=== PATIENT | female | born 1960 | race Caucasian/White ===

== ENCOUNTER 2021-10-11 21:26 | Emergency (ER) | payer OTHER, MEDICAID, SELFPAY ==
[2021-10-11] VITALS (10 sets, daily range): BP systolic 124–164; BP diastolic 68–88; PULSE 73–108; RESP 17–26; TEMP 33.1–33.5; O2SAT 94–97
--- NOTE | 2021-10-11 21:28 | DI.CT.S_ITS ---
PROCEDURE: CT HEAD/BRAIN WO CON INDICATIONS: fall, obvious trauma TECHNIQUE: Noncontrast 4.5 mm thick angled axial sections acquired from the foramen magnum to the vertex, with coronal and sagittal reformats. For radiation dose reduction, the following was used: automated exposure control, adjustment of mA and/or kV according to patient size. COMPARISON: [facility], CT, CT FACIAL BONES WO CON, 10/11/2021, 22:19. [facility], CT, CT CERVICAL SPINE WO CON, 10/11/2021, 22:19. FINDINGS: Image quality: There is metallic streak artifact from patient's dental hardware. CSF spaces: There is an acute hyperdense right holohemispheric subdural hematoma measuring up to approximately 0.4 cm in thickness. This includes components extending along the falx and along the tentorium. There is a suspected small amount of intraventricular hemorrhage in the posterior horns of the right and left lateral ventricles. The basilar cisterns appear patent. Brain: There is leftward midline shift of approximately 0.5 cm. [place]-white matter interface appears preserved. No intraparenchymal hematoma. Skull and face: Calvarium and visualized facial bones appear intact. Sinuses: Visualized sinuses and mastoids are clear. IMPRESSION: 1. Acute right holohemispheric subdural hematoma with associated leftward midline shift as described. 2. Suspected small amount of interventricular hemorrhage in the lateral ventricles. Findings reported to Dr. Camarena on 10/11/2021 at 10:42 p.m.. Dictated by: Abhi Rebolledo M.D. on 10/11/2021 at 22:40 Approved by: Abhi Rebolledo M.D. on 10/11/2021 at 22:48
--- NOTE | 2021-10-11 21:28 | DI.CT.S_ITS ---
PROCEDURE: CT CERVICAL SPINE WO CON INDICATIONS: fall, found down TECHNIQUE: Noncontrast 3 mm thick sections acquired from the skull base to the T4 level. Sagittal and coronal reformats were then constructed. For radiation dose reduction, the following was used: automated exposure control, adjustment of mA and/or kV according to patient size. COMPARISON: [facility], CT, CT HEAD/BRAIN WO CON, 10/11/2021, 22:19. FINDINGS: Image quality: Excellent. Bones: No fractures or subluxation in the cervical spine. There are mild superior endplate compression deformities at T1 and T3 vertebral bodies of indeterminate acuity. There is associated mild loss of height of up to approximately 25% centrally at T1 and T3. No retropulsed fragments in the spinal canal. There is mild straightening of the cervical lordosis. Mild multilevel degenerative disc disease is present within the lower cervical spine. There are disc osteophyte complexes demonstrated at C5-C6 and C6-C7 with associated mild to moderate spinal canal narrowing. Mild multilevel facet arthropathy also present. Visualized superior ribs are intact. Soft tissues: Prevertebral soft tissues are normal in thickness. No paravertebral hematomas. No apical pneumothoraces. There is a right subdural hematoma within the visualized brain as seen on the concurrent CT of the head. IMPRESSION: 1. No fracture or subluxation in the cervical spine. 2. Mild superior endplate compression deformities of the T1 and T3 vertebral bodies of indeterminate acuity. No retropulsed fragments in the spinal canal. Findings discussed with Dr. Camarena on 10/11/2021 at 10:55 p.m.. Dictated by: Abhi Rebolledo M.D. on 10/11/2021 at 22:54 Approved by: Abhi Rebolledo M.D. on 10/11/2021 at 23:00
--- NOTE | 2021-10-11 21:28 | DI.CT.S_ITS ---
PROCEDURE: CT FACIAL BONES WO CON INDICATIONS: fall, obvious injuries TECHNIQUE: Noncontrast 2.5 mm thick axial images acquired from the mandible through the frontal sinuses, with coronal and sagittal reformatting. For radiation dose reduction, the following was used: automated exposure control, adjustment of mA and/or kV according to patient size. COMPARISON: [facility], CT, CT HEAD/BRAIN WO CON, 10/11/2021, 22:19. FINDINGS: Image quality: Excellent. Bones and teeth: Orbital mccord are intact. Sinus mccord show no fracture or deformity. Nasal bones and septum are intact. Visualized portions of the mandible demonstrate no fractures or subluxation. Zygomatic arches are intact. Pterygoid plates are intact. Visualized portions of the skull base and auditory canals are intact. Sinuses: Paranasal sinuses are aerated, without fluid levels, mucosal thickening, or mucoceles. Mastoid air cells are aerated. Soft tissues: There is mild right periorbital soft tissue swelling. The globes appear intact. No retro bulbar fluid collection within the orbits. The visualized brain demonstrates a right subdural hematoma with leftward midline shift as seen on the concurrent CT of the head. Vascular: Visualized vascular structures appear normal in the absence of contrast. Bony vascular foramina and canals are intact. IMPRESSION: 1. No facial bone fractures identified. 2. Partially visualized right subdural hematoma. Recommend correlation with concurrent CT of the head. Dictated by: Abhi Rebolledo M.D. on 10/11/2021 at 22:49 Approved by: Abhi Rebolledo M.D. on 10/11/2021 at 22:54
--- NOTE | 2021-10-11 21:40 | PC.NURSE ---
temperature probe castellano inserted with about 5 ml urine returned, temp at 91F sebas hugger applied to pt
[2021-10-11] MEDS: SODIUM CHLORIDE 0.9% 1,000 ML 150 ML IV ×2 (21:45→22:52)
[2021-10-11 21:49] LABS: Add Manual Diff / Slide Review NO; Basophils Absolute Auto 100 /uL (0-100); Basophils Percent Auto 0.8 % (0-2); Eosinophils Absolute Auto 0 /uL (0-450); Eosinophils Percent Auto 0.1 % (2-4); Hematocrit 30.6 % (36-46); Hemoglobin 10.3 g/dL (12.0-16.0); Lymphocytes Absolute Auto 1000 /uL (1100-4500); Mean Corpuscular HGB Conc 33.6 % (30-36); Mean Corpuscular Hemoglobin 28.9 PG (26-34); Mean Corpuscular Volume 85.9 fL (80-100); Monocytes Absolute Auto 600 /uL (0-900); Monocytes Percent Auto 6.4 % (3-14); Neutrophils Absolute Auto 7400 /uL (1500-7000); Neutrophils Percent Auto 81.7 % (50-75); Platelet Count 114 X10^3/uL (150-400); Red Blood Cell Count 3.57 X10^6/uL (4.0-5.2); Red Cell Distribution Width 22.2 % (11.6-14.8)
[2021-10-11 21:52] LABS: INR 0.9 (0.9-1.3)
[2021-10-11 21:55] LABS: Lactate (Lactic Acid) 1.2 mmol/L (0.7-2.1); PTT Partial Thromboplastin Tim 30 SECONDS (26.4-36.2)
[2021-10-11 21:56] LABS: Acetaminophen < 10 ug/mL (10-30); Alanine Aminotransferase 61 IU/L (<35); Albumin 4.1 g/dL (3.5-5.0); Albumin Globulin Ratio 1.2 (1.0-2.8); Alkaline Phosphatase 154 U/L (38-126); Aspartate Aminotransferase 123 IU/L (14-36); Blood Urea Nitrogen 95 mg/dL (7-17); Calcium 10.2 mg/dL (8.4-10.2); Carbon Dioxide 25 mmol/L (22-32); Chloride 97 mmol/L (98-107); Creatine Kinase 257 U/L (30-135); Estimated Glomerular Filt Rate 25 mL/min (>60); Ethanol (ETOH) < 10 mg/dL; Globulin 3.3 g/dL (1.7-4.1); Glucose 142 mg/dL (80-110); HEMOLYSIS < 15 (0-50); Potassium 3.3 mmol/L (3.4-5.1); Salicylate < 1.0 mg/dL (<20); Sodium 142 mmol/L (137-145); Total Protein 7.4 g/dL (6.3-8.2)
--- NOTE | 2021-10-11 22:03 | PC.NURSE ---
see triage note for assessment
[2021-10-11 22:07] LABS: Troponin I < 0.012 ng/mL (0.01-0.034)
[2021-10-11 22:08] LABS: Ammonia (NH3) < 9 umol/L (9-30)
[2021-10-11 22:11] LABS: CKMB % Relative Index 2.9 % (1.5-5.0); Creatine Kinase MB 7.54 ng/mL (<2.37)
[2021-10-11 22:21] LABS: Anisocytosis 3+; Ovalocytes 1+
--- NOTE | 2021-10-11 22:22 | ED_ITS ---
HPI - Altered Mental Status General Chief Complaint: Altered Mental Status Stated Complaint: Found down Time Seen by Provider: 10/11/21 21:34 Source: EMS Mode of arrival: EMS History of Present Illness HPI narrative: 61-year-old female with minimal known medical history presents by EMS for evaluation of altered mental status. Per EMS report is that she was found lying on the bathroom floor by her daughter with an unknown down time. She was found to be incontinent of stool and urine and has multiple bruises on her head, face, chest, abdomen. It is unclear if she has been on blood thinners. She states she thinks she bumped her head a few days ago but is unclear about recent events. She has a very poor historian. She is activated as of modified trauma given altered mental status and head injury Related Data Allergies Allergy/AdvReac Type Severity Reaction Status Date / Time Penicillins Allergy Verified 10/11/21 22:29 Review of Systems Review of Systems ROS Unobtainable: Unobtainable due to mental status/LOC Exam Narrative Exam Narrative: GENERAL: [61] year old patient appears stated age. GCS 14 (Confused) HEAD: scalp contusions, no obvious depressed skull fracture, ecchymosis surrou nding both eyes EYES: Pupils equal round and reactive. No hyphema, Extraocular motions intact. No scleral icterus. No injection or drainage. ENT: Dry mucous membranes Nose without bleeding, purulent drainage. Throat without erythema, tonsillar hypertrophy or exudate. Airway patent. NECK: Trachea midline. Midline tenderness, no step-offs or crepitance CARDIOVASCULAR: Ecchymosis on anterior chest and abdomen. Regular rate and rhythm without murmurs, gallops, or rubs. RESPIRATORY: Clear to auscultation. Breath sounds equal bilaterally. No wheezes, rales, or rhonchi. GASTROINTESTINAL: Abdomen soft, non-tender, nondistended. EXTREMITIES: No edema or joint tenderness. BACK: Nontender without deformity or crepitance. No flank tenderness. NEURO: Awake, confused regarding location and circumstances SKIN: Poor skin turgor No rash or erythema of visible areas Initial Vital Signs Initial Vital Signs: Vital Signs Pulse Rate 75 10/11/21 21:28 Blood Pressure 155/88 H 10/11/21 21:28 Pulse Oximetry 95 10/11/21 21:28 Course Orders Ordered: ED Orders 10/11/21 21:28 CT cervical spine wo con Stat CT facial bones wo con Stat CT head/brain wo con Stat Urine Culture Stat Urine Drug Screen, Rapid Stat EKG-12 Lead Stat 10/11/21 21:34 Acetaminophen Stat COVID19 -Nasal RAPID/Pre-Proc Stat Complete Blood Count AUTO DIFF Stat Comprehensive Metabolic Panel Stat Ethanol (ETOH) Stat Lactate (Lactic Acid) Stat Osmolality, Serum Stat Partial Thromboplastin Time Stat Prolactin Stat Prothrombin Time INR Stat Salicylate Stat Thyroid Stimulating Hormone Stat Troponin & CK Cardiac Panel Stat 10/11/21 21:50 Ammonia (NH3) Stat Sodium Chloride (Normal Saline 0.9%) 1,000 mls @ 150 mls/hr IV CONT LONNY Last Admin: 10/11/21 22:52 Dose: 150 mls/hr Reevaluation(s) Reevaluation #1: discussed with daughter ([phone]), brother is CEZAR Flores ([phone]) Consultations Consultation #1: Dr. Albarado ([facility] [place] Trauma) happy to accept Vital Signs Vital signs: Vital Signs - 8 hr 10/11/21 21:35 10/11/21 21:28 10/11/21 21:28 Temperature 92.2 F L Pulse Rate 73 75 Respiratory Rate 18 Blood Pressure 143/80 H 155/88 H Pulse Oximetry 97 95 Oxygen Delivery Method Room Air 10/11/21 21:30 10/11/21 21:31 10/11/21 21:31 Temperature Pulse Rate 76 Respiratory Rate 22 Blood Pressure 143/80 H Pulse Oximetry 96 96 Oxygen Delivery Method 10/11/21 22:00 10/11/21 22:00 10/11/21 22:28 Temperature 91.6 F L Pulse Rate 85 96 H Respiratory Rate 17 23 Blood Pressure 142/84 H Pulse Oximetry 97 94 Oxygen Delivery Method 10/11/21 22:28 10/11/21 22:30 10/11/21 22:30 Temperature 91.6 F L Pulse Rate 73 Respiratory Rate 22 Blood Pressure 140/88 164/74 H Pulse Oximetry 97 Oxygen Delivery Method MDM - Altered Mental Status Lab Data Result diagrams: 10/11/21 21:34 10/11/21 21:34 Labs: Lab Results 10/11/21 10/11/21 10/11/21 Range/Units 21:34 21:34 21:34 WBC 9.0 (4.5-11.0) X10^3/uL RBC 3.57 L (4.0-5.2) X10^6/uL Hgb 10.3 L (12.0-16.0) g/dL Hct 30.6 L (36-46) % MCV 85.9 (80-100) fL MCH 28.9 (26-34) PG MCHC 33.6 (30-36) % RDW 22.2 H (11.6-14.8) % Plt Count 114 L (150-400) X10^3/uL Neut % (Auto) 81.7 H (50-75) % Lymph % (Auto) 11.0 L (25-40) % [place] % (Auto) 6.4 (3-14) % Eos % (Auto) 0.1 L (2-4) % Baso % (Auto) 0.8 (0-2) % Neut # (Auto) 7400 H (2278-2386) /uL Lymph # (Auto) 1000 L (5831-1004) /uL [place] # (Auto) 600 (0-900) /uL Eos # (Auto) 0 (0-450) /uL Baso # (Auto) 100 (0-100) /uL RBC Morphology See below Anisocytosis 3+ H Ovalocytes 1+ H PT 10.0 L (10.1-12.7) SECONDS INR 0.9 (0.9-1.3) APTT 30 (26.4-36.2) SECONDS Sodium 142 (137-145) mmol/L Potassium 3.3 L (3.4-5.1) mmol/L Chloride 97 L (98-107) mmol/L Carbon Dioxide 25 (22-32) mmol/L BUN 95 H (7-17) mg/dL Creatinine 2.21 H (0.52-1.04) mg/dL Estimated GFR 25 L (>60) mL/min BUN/Creatinine Ratio 43.0 H (6-22) Glucose 142 H (80-110) mg/dL Lactate (0.7-2.1) mmol/L Calcium 10.2 (8.4-10.2) mg/dL Total Bilirubin 1.0 (0.2-1.3) mg/dL AST 123 H (14-36) IU/L ALT 61 H (<35) IU/L Alkaline Phosphatase 154 H (38-126) U/L Ammonia (9-30) umol/L Total Creatine Kinase 257 H (30-135) U/L CK-MB (CK-2) 7.54 H (<2.37) ng/mL CK-MB (CK-2) Rel Index 2.9 (1.5-5.0) % Troponin I < 0.012 (0.01-0.034) ng/mL Total Protein 7.4 (6.3-8.2) g/dL Albumin 4.1 (3.5-5.0) g/dL Globulin 3.3 (1.7-4.1) g/dL Albumin/Globulin Ratio 1.2 (1.0-2.8) Prolactin 33.0 H (3.0-18.6) ng/mL Salicylates < 1.0 (<20) mg/dL Acetaminophen < 10 (10-30) ug/mL Ethyl Alcohol < 10 ( - 10) mg/dL SARS-CoV-2 (PCR) (Negative) 10/11/21 10/11/21 10/11/21 Range/Units 21:34 21:50 22:35 WBC (4.5-11.0) X10^3/uL RBC (4.0-5.2) X10^6/uL Hgb (12.0-16.0) g/dL Hct (36-46) % MCV (80-100) fL MCH (26-34) PG MCHC (30-36) % RDW (11.6-14.8) % Plt Count (150-400) X10^3/uL Neut % (Auto) (50-75) % Lymph % (Auto) (25-40) % [place] % (Auto) (3-14) % Eos % (Auto) (2-4) % Baso % (Auto) (0-2) % Neut # (Auto) (2083-1260) /uL Lymph # (Auto) (1652-4220) /uL [place] # (Auto) (0-900) /uL Eos # (Auto) (0-450) /uL Baso # (Auto) (0-100) /uL RBC Morphology Anisocytosis Ovalocytes PT (10.1-12.7) SECONDS INR (0.9-1.3) APTT (26.4-36.2) SECONDS Sodium (137-145) mmol/L Potassium (3.4-5.1) mmol/L Chloride (98-107) mmol/L Carbon Dioxide (22-32) mmol/L BUN (7-17) mg/dL Creatinine (0.52-1.04) mg/dL Estimated GFR (>60) mL/min BUN/Creatinine Ratio (6-22) Glucose (80-110) mg/dL Lactate 1.2 (0.7-2.1) mmol/L Calcium (8.4-10.2) mg/dL Total Bilirubin (0.2-1.3) mg/dL AST (14-36) IU/L ALT (<35) IU/L Alkaline Phosphatase (38-126) U/L Ammonia < 9 L (9-30) umol/L Total Creatine Kinase (30-135) U/L CK-MB (CK-2) (<2.37) ng/mL CK-MB (CK-2) Rel Index (1.5-5.0) % Troponin I (0.01-0.034) ng/mL Total Protein (6.3-8.2) g/dL Albumin (3.5-5.0) g/dL Globulin (1.7-4.1) g/dL Albumin/Globulin Ratio (1.0-2.8) Prolactin (3.0-18.6) ng/mL Salicylates (<20) mg/dL Acetaminophen (10-30) ug/mL Ethyl Alcohol ( - 10) mg/dL SARS-CoV-2 (PCR) Negative (Negative) Point of Care Testing Glucose POC [address] scan - head: Radiologist's Impression: [address] [address] [address] Scan Report Signed Patient: Bisi Reyes MR#: [id number] : 1960 Acct:[id number] Age/Sex: 61 / F Date of Service: 10/11/21 Loc: ED Accession Number: [id number] ?? Procedure: CT head/brain wo con Ordering Provider: Dave Camarena D.O. PROCEDURE:? CT HEAD/BRAIN WO CON ? INDICATIONS:? fall, obvious trauma ? TECHNIQUE:? Noncontrast 4.5 mm thick angled axial sections acquired from the foramen magnum to the vertex, with coronal and sagittal reformats.? For radiation dose reduction, the following was used:? automated exposure control, adjustment of mA and/or kV according to patient size.? ? COMPARISON:? [facility], CT, CT FACIAL BONES WO [facility], 10/11/2021, 22:19.? [facility], CT, CT CERVICAL SPINE WO [facility], 10/11/2021, 22:19. ? FINDINGS:? Image quality:? There is metallic streak artifact from patient's dental hardware.? ? CSF spaces:? There is an acute hyperdense right holohemispheric subdural hematoma measuring up to approximately 0.4 cm in thickness.? This includes components extending along the falx and along the tentorium.? There is a suspected small amount of intraventricular hemorrhage in the posterior horns of the right and left lateral ventricles.? The basilar cisterns appear patent. ? Brain:? There is leftward midline shift of approximately 0.5 cm.? [place]av[place]-white matter interface appears preserved.? No intraparenchymal hematoma. ? Skull and face:? Calvarium and visualized facial bones appear intact. ? Sinuses:? Visualized sinuses and mastoids are clear.? ? IMPRESSION:? ? 1. Acute right holohemispheric subdural hematoma with associated leftward midline shift as described. ? 2. Suspected small amount of interventricular hemorrhage in the lateral ventricles. ? Findings reported to Dr. Camarena on 10/11/2021 at 10:42 p.m..? ? ? Dictated by: Abhi Rebolledo M.D. on 10/11/2021 at 22:40 ? ? Approved by: Abhi Rebolledo M.D. on 10/11/2021 at 22:48 ? CT Facial Bones: Radiologist's Impression: Close Cervical Spine CT 10/11/[address] (Signed) Abhi Rebolledo - 10/11/[address] (Signed) Abhi Rebolledo - 10/11/21 Launch?Image [address] [address] [address] Scan Report Signed Patient: Bisi Reyes MR#: [id number] : 1960 Acct:[id number] Age/Sex: 61 / F Date of Service: 10/11/21 Loc: ED Accession Number: [id number] ?? Procedure: CT facial bones wo con Ordering Provider: Dave Camarena D.O. PROCEDURE:? CT FACIAL BONES WO CON ? INDICATIONS:? fall, obvious injuries ? TECHNIQUE:? Noncontrast 2.5 mm thick axial images acquired from the mandible through the frontal sinuses, with coronal and sagittal reformatting.? For radiation dose reduction, the following was used:? automated exposure control, adjustment of mA and/or kV according to patient size.? ? COMPARISON:? [facility], CT, CT HEAD/BRAIN WO CON, 10/11/2021, 22:19. ? FINDINGS:? Image quality:? Excellent.? ? Bones and teeth:? Orbital mccord are intact.? Sinus mccord show no fracture or deformity.? Nasal bones and septum are intact.? Visualized portions of the mandible demonstrate no fractures or subluxation.? Zygomatic arches are intact.? Pterygoid plates are intact.? Visualized portions of the skull base and auditory canals are intact.? ? Sinuses:? Paranasal sinuses are aerated, without fluid levels, mucosal thickening, or mucoceles.? Mastoid air cells are aerated.? ? Soft tissues:? There is mild right periorbital soft tissue swelling.? The globes appear intact.? No retro bulbar fluid collection within the orbits.? The visualized brain demonstrates a right subdural hematoma with leftward midline shift as seen on the concurrent CT of the head. ? Vascular:? Visualized vascular structures appear normal in the absence of contrast.? Bony vascular foramina and canals are intact.? ? IMPRESSION:? ? 1. No facial bone fractures identified. ? 2. Partially visualized right subdural hematoma.? Recommend correlation with co ncurrent CT of the head.? ? ? Dictated by: Abhi Rebolledo M.D. on 10/11/2021 at 22:49 ? ? Approved by: Abhi Rebolledo M.D. on 10/11/2021 at 22:54? MDM Narrative Medical decision making narrative: 61-year-old female with known alcohol history found down by daughter, last seen normal about 2 weeks ago, admits to hitting her head a few days ago. Multiple fresh, dark purple bruises throughout, confused, poor historian, activated as trauma and upon viewing head CT advanced imaging of chest abdomen pelvis is put on hold, images sent to [facility] and transfer initiated. I have spoken with patient's daughter and brother (POA) and they are aware. ALWaltW En route. Dr. Albarado to accept at [facility] [place] Trauma Critical Care Time Critical Care Time Critical Care Time: Yes Total Critical Care Time: 30 Attestation: The high probability of a clinically significant, sudden or life threatening deterioration of the [Neuro] system(s) required my full and direct attention, intervention and personal management. The aggregate critical care time was [30] minutes. This time is in addition to time spent performing reported procedures but includes the following: [x] Data Review and interpretation [x] Patient assessment and monitoring of vital signs [x] Documentation [x] Medication orders and management Discharge Plan Departure Patient Disposition: [facility] Clinical Impression: Subdural hematoma
--- NOTE | 2021-10-11 22:31 | PC.NURSE ---
pt received 1000 ml NS from ems bag
[2021-10-11 22:52] LABS: COVID19 -Nasal RAPID Negative (Negative)
[2021-10-11 23:03] LABS: Thyroid Stimulating Hormone 0.529 uIU/mL (0.47-4.68)
[2021-10-13 16:17] LABS: Osmolality, Serum 332 mOsmol/kg (280-301)
== END 2021-10-11 23:48 | disposition short-term general hospital (02) ==
PROVIDERS: Emergency Provider Emergency Medicine
DX: S06.5X0A Traumatic subdural hemorrhage without loss of consciousness, initial encounter (principal); W19.XXXA Unspecified fall, initial encounter; Z20.822 Contact with and (suspected) exposure to COVID-19
CPT/HCPCS: 36415; 70450; 70486; 72125; 80053; 80320; 80329; 82140; 82550; 82553; 82962; 83605; 83930; 84146; 84443; 84484; 85025; 85610; 85730; 87040; 87635; 93005; 93010; 96360; 99284; C9803; G0480